=== PATIENT | male | born 1995 | race African-American/Black ===

== ENCOUNTER 2024-06-03 23:09 | Emergency (ER) | payer SELFPAY ==
[~2024-06-03] VITALS: Ht 165.1 cm; Wt 111.8 kg
[2024-06-03 23:15] VITALS: BP 140/84; PULSE 103; RESP 16; TEMP 97.7; O2SAT 98
[2024-06-03 23:21] LABS: COVID AG,FIA SOURCE NASAL SWAB
[2024-06-03 23:39] LABS: SARS-COV2 (COVID) ANTIGEN,FIA Negative (Negative)
[2024-06-03 23:41] LABS: INFLUENZA TYPE A NEGATIVE FOR TYPE A (NEGATIVE); INFLUENZA TYPE B NEGATIVE FOR TYPE B (NEGATIVE)
[2024-06-04] MEDS: ACETAMINOPHEN 500 MG TABLET PO ONE (00:43)
[2024-06-04] MEDS: GuaiFENesin/D-METHORPHAN [SUGAR-FREE] 200-20MG/10 ML SYRUP UDCUP PO ONE (00:44)
[2024-06-04] MEDS ORDERED: GUAIFDM PO (00:47)
[2024-06-04] MEDS ORDERED: ACET-66 PO (00:47)
[2024-06-04] MEDS ORDERED: CEPH-558 PO (00:47)
[2024-06-04] MEDS ORDERED: IBUP-1554 PO (00:47)
== END 2024-06-04 01:13 | disposition home or self-care (01) ==
LOC: EMS 23:11
DX: J18.9 Pneumonia, unspecified organism (principal); R09.89 Other specified symptoms and signs involving the circulatory and respiratory systems; Z20.822 Contact with and (suspected) exposure to COVID-19
CPT/HCPCS: 87804; 99283